=== PATIENT | female | born 1980 | race Caucasian/White ===

== ENCOUNTER 2017-09-17 15:16 | Emergency (ER) | payer OTHER ==
[~2017-09-17] VITALS: Ht 175.3 cm; Wt 69.4 kg
[~2017-09-17 15:16] MED LIST: ACETAMINOPHEN-120 ML PO; NOHOMEMEDICATIONS; PHENERGAN 25 MG25 M1 PO
[2017-09-17 15:56] LABS: URINE BILIRUBIN NEGATIVE (Negative); URINE BLOOD 2+ (Negative); URINE CLARITY CLEAR; URINE COLOR YELLOW; URINE GLUCOSE-RANDOM NEGATIVE (Negative); URINE KETONES TRACE (Negative); URINE LEUKOCYTES-REFLEX NEGATIVE (Negative); URINE NITRITE-REFLEX NEGATIVE (Negative); URINE PROTEIN NEGATIVE (Negative); URINE SPECIFIC GRAVITY 1.025 (1.005-1.030); URINE UROBILINOGEN 0.2 E.U./dl (0.2-1.0)
[2017-09-17 16:05] LABS: ABSOLUTE EOSINOPHILS 0.1 thou/uL (0.0-0.7); ABSOLUTE LYMPHOCYTES 2.5 thou/uL (0.8-5.3); ABSOLUTE MONOCYTES 0.8 thou/uL (0.0-1.2); ABSOLUTE NEUTROPHILS 3.8 thou/uL (1.6-8.1); BASOPHILS 0.7 %; EOSINOPHILS 1.6 %; HEMATOCRIT 38.3 % (37.0-47.0); HEMOGLOBIN 12.6 gm/dL (12.0-15.0); LYMPHOCYTES 34.1 %; MCH 31.1 pg (26.0-34.0); MCV 94.2 fL (80.0-100.0); MPV 9.6 fl. (7.2-11.1); NUCLEATED RBCS 0 /100WBC; PLATELET COUNT* 306 thou/uL (150-400); POLYS 52.6 %; RBC 4.07 mil/uL (4.20-5.00); RDW-CV 13.4 % (10.5-14.5); WBC 7.3 thou/uL (4.0-11.0)
[2017-09-17 16:15] LABS: MUCUS >6 Heavy strn/LPF (None Seen); SQUAMOUS 4-10 Moderate /LPF (0-3)
[2017-09-17 16:16] LABS: BACTERIA-REFLEX 1-9 Few /HPF (None Seen); CASTS None Seen /LPF (None Seen); CRYSTALS None Seen /LPF (None Seen); URINE WBC-REFLEX 0-5 Rare /HPF (0-5)
[2017-09-17 16:17] LABS: CALCIUM 8.7 mg/dL (8.5-10.1); CREATININE 0.7 mg/dL (0.6-1.3); POTASSIUM 3.8 mmol/L (3.5-5.1)
[2017-09-17 16:22] LABS: ALBUMIN 3.6 g/dL (3.4-5.0); TOTAL BILIRUBIN 0.2 mg/dL (<0.1-1.0)
[2017-09-17 18:05] VITALS: BP 114/67
== END 2017-09-17 18:08 | disposition home or self-care (01) ==
LOC: M.ERS 15:16
PROVIDERS: Nurse Practitioner Family
DX: O20.0 Threatened abortion (principal); Z3A.01 Less than 8 weeks gestation of pregnancy

== ENCOUNTER → 2019-07-16 | Outpatient (CLI) | payer OTHER ==
[2019-07-16 10:12] LABS: ABSOLUTE EOSINOPHILS 0.1 thou/uL (0.0-0.7); ABSOLUTE LYMPHOCYTES 1.7 thou/uL (0.8-5.3); ABSOLUTE MONOCYTES 0.5 thou/uL (0.0-1.2); ABSOLUTE NEUTROPHILS 6.2 thou/uL (1.6-8.1); BASOPHILS 0.5 %; EOSINOPHILS 0.7 %; HEMATOCRIT 37.9 % (37.0-47.0); HEMOGLOBIN 12.9 gm/dL (12.0-15.0); LYMPHOCYTES 20.4 %; MCH 32.5 pg (26.0-34.0); MCHC 34.1 g/dL (28.0-37.0); MCV 95.3 fL (80.0-100.0); MONOCYTES 5.5 %; MPV 8.4 fl. (7.2-11.1); NUCLEATED RBCS 0 /100WBC; PLATELET COUNT* 317 thou/uL (150-400); POLYS 72.9 %; RBC 3.97 mil/uL (4.20-5.00); RDW-CV 13.5 % (10.5-14.5); WBC 8.6 thou/uL (4.0-11.0)
[2019-07-16 10:29] LABS: ALBUMIN 3.3 g/dL (3.4-5.0); CALCIUM 8.4 mg/dL (8.5-10.1); CREATININE 0.5 mg/dL (0.6-1.3); POTASSIUM 3.7 mmol/L (3.5-5.1); TOTAL BILIRUBIN 0.4 mg/dL (<0.1-1.0); TOTAL PROTEIN 7.1 g/dL (6.4-8.2)
== END ==
LOC: M.LAB 09:50
PROVIDERS: Family Medicine
DX: N92.0 Excessive and frequent menstruation with regular cycle (principal)

== ENCOUNTER 2019-12-23 19:02 | Emergency (ER) | payer OTHER ==
[~2019-12-23] VITALS: Ht 175.3 cm; Wt 74.8 kg
[2019-12-23] MEDS ORDERED: IMITREX 25 MG T25 MG PO (19:15)
[2019-12-23] MEDS ORDERED: XANAX 0.25 MG0.25 MG PO (19:16)
[2019-12-23] MEDS ORDERED: PROAIR HFA8.5 GM INH (21:30)
[2019-12-23] MEDS ORDERED: MEDROLDOSEPACK PO (21:30)
[2019-12-23] MEDS ORDERED: LORATIDINE 10 M10 M1 PO (21:30)
[2019-12-23 21:49] VITALS: BP 128/82
== END 2019-12-23 21:51 | disposition home or self-care (01) ==
LOC: M.ERS 19:02
DX: J06.9 Acute upper respiratory infection, unspecified (principal); Z20.828 Contact with and (suspected) exposure to other viral communicable diseases

== ENCOUNTER → 2020-11-11 | Outpatient (CLI) | payer OTHER ==
[~2020-11-11] MED LIST changes: +IMITREX 25 MG T25 MG PO; +LORATIDINE 10 M10 M1 PO; +MEDROLDOSEPACK PO; +PROAIR HFA8.5 GM INH; +XANAX 0.25 MG0.25 MG PO
== END ==
LOC: M.ULTRA 09-13 13:00
PROVIDERS: ATTEND Obstetrics & Gynecology
DX: Z12.31 Encounter for screening mammogram for malignant neoplasm of breast (principal); N92.0 Excessive and frequent menstruation with regular cycle

== ENCOUNTER → 2020-12-15 | Outpatient (CLI) | payer OTHER ==
[~2020-12-15] MED LIST changes: +ACETAMINOPHEN500 M1 PO; +IBUPROFEN 600600 M1 PO; +ROXICODONE5 M2 PO
== END ==
LOC: M.LAB 11:04
PROVIDERS: ATTEND Obstetrics & Gynecology
DX: Z01.812 Encounter for preprocedural laboratory examination (principal); Z20.822 Contact with and (suspected) exposure to COVID-19

== ENCOUNTER → 2020-12-16 | Day surgery (SDC) | payer OTHER ==
--- NOTE | ~2020-12-16 | OP ---
[address] [address] OPERATIVE REPORT Name: MITCHELRYAN JONES Room: [facility] M.R.#: [id number] Admission: 12/16/20 Attend Phys: Marcel Calixto Discharge: Date of : 80 Report #: [id number] THIS REPORT FOR: cc: Nara Luciano Maggie M. DO Moreno, Kiersten M. MD ~ DATE OF SURGERY: 12/16/2020 PREOPERATIVE DIAGNOSIS: Menorrhagia. POSTOPERATIVE DIAGNOSIS: Menorrhagia. PROCEDURES: Robotic-assisted total laparoscopic hysterectomy and bilateral salpingectomy. SURGEON: Shea Watkins MD DIETARY AIDE: Walker Funk MD COMPLICATIONS: None. ESTIMATED BLOOD LOSS: 40 mL. SPECIMENS: Uterus and tubes sent to pathology. INDICATIONS: This is a 40-year-old G3, P3 with menorrhagia and pelvic pain who desires definitive management with hysterectomy. Risks, benefits and alternatives were discussed on multiple occasions and consents were signed for the following procedure. DESCRIPTION OF PROCEDURE: The patient was taken to the operating room with IV fluids running and SCDs placed on bilateral lower extremities. General anesthesia was obtained without difficulty. She was placed in the dorsal lithotomy position and prepped and draped in normal sterile fashion. Time-out was performed. A Vasquez catheter was inserted into the bladder. Speculum was placed into the vagina. The anterior lip of the cervix was grasped with a single-tooth tenaculum. The uterus was sounded to 8 cm and dilated to accommodate a medium VCare manipulator, which was then introduced into the uterus and insufflated with 8 mL of air. The LUIS cup was then secured around the cervix. At the same time, my law office assistant placing a Veress needle into the umbilicus and insufflating the abdomen to a pressure of 15 mmHg with CO2 gas. An incision was made on the superior aspect of the umbilicus and an 8 mm robotic port was then placed under direct visualization. I then changed my gloves and attended to the abdominal portion of the procedure. Under direct visualization, I placed an 8 mm robotic port on the right lower quadrant. My law office assistant placed a robotic port on the left side and a 10 mm AirSeal [place] [address] OPERATIVE REPORT Name: RYAN GRULLON Room: [facility].#: [id number] Admission: 12/16/20 Attend Phys: Marcel Calixto Discharge: Date of : 80 Report #: [id number] quadrant. We then docked the robot and introduced instruments. I then turned my attention to the robotic console. The left fallopian tube was elevated. The mesosalpinx was cauterized and then ligated. The left uteroovarian and round ligaments were cauterized and ligated. The anterior leaf of the broad ligament was transected down to the level of the LUIS cup and the posterior leaf was transected down to the level of the uterosacral ligaments. The uterine vessels were skeletonized and then cauterized. These were then ligated with the monopolar scissors allowing for the cardinal ligament to fall away, then turned my attention to the right side and similarly, the right fallopian tube was elevated and the mesosalpinx was cauterized and ligated. The right uteroovarian and round ligaments were cauterized and ligated and similarly, the anterior and posterior leaves were and transected. The right uterine vessels were cauterized and ligated along to the cardinal ligaments all the way. The colpotomy was begun on the right side and then made in a circumferential fashion until it was completely transected. The uterus was delivered through the vagina. The colpotomy was closed with 2-0 Vicryl V-Loc suture in a running continuous fashion. The pelvis was irrigated with normal saline and hemostasis was noted. Estimated blood loss was 40 mL total. Ureters were seen peristalsing bilaterally in the pelvis. Then, removed the instruments, undocked the robot and desufflated the abdomen of all CO2 gas. My law office assistant closed the port sites with 4-0 Monocryl in a subcuticular stitch and surgical glue was placed over the incision site. The patient was then awoken and taken to recovery room in stable condition. By: [id number] 1906Shea Watkins MD /nicholas
[2020-12-16 07:35] LABS: HEMATOCRIT 33.5 % (37.0-47.0); HEMOGLOBIN 11.1 gm/dL (12.0-15.0); MCHC 33.3 g/dL (28.0-37.0); MCV 93.2 fL (80.0-100.0); MPV 10.5 fl. (7.2-11.1); RBC 3.59 mil/uL (4.20-5.00); RDW-CV 13.9 % (10.5-14.5)
--- NOTE | 2020-12-20 13:08 | PATH ---
[address] [address] PATHOLOGY RPT PROCEDURE Name: RYAN GRULLON Room: [facility]..#: [id number] Admission: 12/16/20 Date of : 80 Discharge: Report #: [id number] Path Case #: [id number] [facility] Accession Number: [id number] . 01 Material submitted: . uterus - UTERUS, CERVIX, LEFT AND RIGHT FALLOPIAN TUBES . 01 Clinical history: . ROBOTIC TOTAL HYSTERECTOMY MENORRHAGIA . 02 Diagnosis: Uterus, cervix, left and right fallopian tubes: 107 gram uterus (including cervix and without bilateral adnexa) with: - Cervix: Acute and chronic cystic cervicitis with associated atypical squamous metaplasia, negative for high-grade squamous intraepithelial lesion. - Endometrium: Proliferative pattern, negative for hyperplasia and atypia. - Myometrium: No significant pathologic changes. - Bilateral fimbriated fallopian tubes: Cystic [place] rests, negative for malignancy. (XIN:emmanuel; 12/19/2020) MBR 12/19/2020 1613 Local . 02 Electronically signed: . Tim Nascimento MD, Pathologist NPI- [id number] . 01 Gross description: . Fixative: Formalin Labeled: Uterus, cervix, right and left fallopian tubes Specimen received: A uterus with attached cervix and attached bilateral fallopian tubes Uterus weight: 107 g Uterus: 7.5 x 6.0 x 4.0 cm Serosa: Brown and smooth Ectocervix: Brown-white and smooth with a brown, irregular, flat lesion at 7:00 measuring 0.3 x 0.2 cm. Upon sectioning the lesion appears smooth-walled and cystic. Cervical os: Slitlike, measuring 0.7 cm Anterior lower uterine segment inked blue, posterior lower uterine segment inked black Endocervical canal: 2.5 cm Endometrial cavity: 3.7 x 2.5 cm Endometrial thickness: 0.1 cm Myometrial thickness: 1.8 cm Lesions/abnormalities: None identified [place] [address] PATHOLOGY RPT PROCEDURE Name: RYAN GRULLON Room: [facility] M.R.#: [id number] Admission: 12/16/20 Date of : 80 Discharge: Report #: [id number] Path Case #: [id number] cervical lesion Right fallopian tube: 8.0 cm in length, ranges from 0.4-0.9 cm in diameter, present fimbria Right fallopian tube appearance: Brown-brown with multiple smooth-walled, serous fluid filled cysts Left fallopian tube: 7.7 cm in length, ranges from 0.4-0.7 cm in diameter, present fimbria Left fallopian tube appearance: Brown-brown and smooth with multiple smooth-walled, serous fluid filled cysts. . [employer] sections are submitted as follows: A1 12:00 cervix A2 7:00 cervix with lesion A3 anterior endomyometrium A4 posterior endomyometrium A5 right fallopian tube A6 left fallopian tube (MRF; 12/16/2020) MFE/MFE 12/16/2020 1859 Local . 02 Pathologist provided ICD-10: N72, N87.9 . 02 CPT . 482242 Specimen Comment: A courtesy copy of this report has been sent to [phone], [phone] Specimen Comment: [phone] Specimen Comment: Report sent to , DR APODACA / DR MCGREGOR Performed at: 01 [facility] [address] [place] [address] [address], [place] [id number] MD Philip Galloway MD Phone: [phone] Performed at: 02 [facility] [address], [place], [place] [id number] MD Tim Nascimento MD Phone: [phone]
== END | disposition home or self-care (01) ==
LOC: M.SUR 06:13
PROVIDERS: Anesthesiology; ATTEND Obstetrics & Gynecology
DX: N92.0 Excessive and frequent menstruation with regular cycle (principal); N72 Inflammatory disease of cervix uteri; N87.9 Dysplasia of cervix uteri, unspecified; Z98.890 Other specified postprocedural states; Z79.899 Other long term (current) drug therapy